=== PATIENT | male | born 1975 | race Caucasian/White ===

== ENCOUNTER 2018-08-30 20:56 | Emergency (ER) | payer OTHER ==
[~2018-08-30] VITALS: Ht 172.7 cm; Wt 85.7 kg
[2018-08-30] MEDS ORDERED: SYNTHROID175 MCG PO (21:06)
[2018-08-30 21:39] VITALS: BP 145/87
== END 2018-08-30 21:40 | disposition home or self-care (01) ==
LOC: M.ERS 20:56
DX: S61.211A Laceration without foreign body of left index finger without damage to nail, initial encounter (principal); W27.0XXA Contact with workbench tool, initial encounter; Y93.89 Activity, other specified; Y92.096 Garden or yard of other non-institutional residence as the place of occurrence of the external cause; Y99.8 Other external cause status